=== PATIENT | female | born 1965 | race Two or more races ===

== ENCOUNTER 2017-12-29 07:28 | Emergency (ER) | payer OTHER ==
[~2017-12-29] VITALS: Ht 162.6 cm; Wt 71.7 kg
[2017-12-29 07:30] VITALS: Ht 162.6 cm; Wt 71.7 kg
[2017-12-29 08:24] VITALS: BP 126/65
== END 2017-12-29 08:43 | disposition home or self-care (01) ==
LOC: ED
DX: S00.93XA Contusion of unspecified part of head, initial encounter (principal); S20.219A Contusion of unspecified front wall of thorax, initial encounter; E78.5 Hyperlipidemia, unspecified; M79.605 Pain in left leg; V49.88XA Car occupant (driver) (passenger) injured in other specified transport accidents, initial encounter; Y93.I9 Activity, other involving external motion; Y92.413 State road as the place of occurrence of the external cause; Y99.8 Other external cause status
CPT/HCPCS: Q0092

== ENCOUNTER 2018-05-17 01:50 | Emergency (ER) | payer OTHER ==
[~2018-05-17] VITALS: Ht 167.6 cm; Wt 70.3 kg
[2018-05-17 01:55] VITALS: Ht 167.6 cm; Wt 70.3 kg
[2018-05-17 04:34] VITALS: BP 103/80
== END 2018-05-17 04:39 | disposition home or self-care (01) ==
LOC: ED 01:50
DX: M54.5 Low back pain (principal); N39.0 Urinary tract infection, site not specified; Z98.890 Other specified postprocedural states
CPT/HCPCS: J2270; J7030

== ENCOUNTER 2020-02-02 17:10 | Emergency (ER) | payer OTHER ==
[~2020-02-02] VITALS: Ht 167.6 cm; Wt 75.7 kg
[2020-02-02 17:23] VITALS: Ht 167.6 cm; Wt 75.7 kg
[2020-02-02 17:52] LABS: BASOPHIL % 0.3 % (0-2); PLATELET COUNT 268 x10^3mcL (130-400); RED CELL DISTRIBUTION WIDTH 13.3 % (11.5-14.5)
[2020-02-02 18:02] LABS: CALCIUM 8.9 mg/dL (8.5-10.1); CARBON DIOXIDE 30.1 mmol/L (21-32); CHLORIDE SERUM 102 mmol/L (98-107); CREATININE SERUM 0.8 mg/dL (0.6-1.0); GFR1 > 60 mL/min; GLUCOSE SERUM 142 mg/dL (74-106); POTASSIUM SERUM 3.8 mmol/L (3.5-5.1); SODIUM SERUM 139 mmol/L (136-145)
[2020-02-02 18:07] LABS: ALBUMIN 3.9 g/dL (3.4-5.0); ALKALINE PHOSPHATASE 78 U/L (46-116); ALT/SGPT 24 U/L (14-59); AST/SGOT 15 U/L (15-37); BILIRUBIN TOTAL 0.35 mg/dL (0.20-1.00); TOTAL PROTEIN, SERUM 8.2 g/dL (6.4-8.2)
[2020-02-02 22:07] VITALS: BP 122/66
== END 2020-02-02 22:07 | disposition home or self-care (01) ==
LOC: ED 17:10
DX: R07.89 Other chest pain (principal); E78.5 Hyperlipidemia, unspecified; R20.0 Anesthesia of skin
CPT/HCPCS: Q0092; Q9967